=== PATIENT | female | born 1960 | race Caucasian/White ===

== ENCOUNTER → 2017-08-04 | Outpatient (CLI) | payer OTHER ==
[~2017-08-04] MED LIST: ADVIN25/60 INH; ALBU1AER9 INH; ASPEC81 PO; BACL10TA PO; IBUP-1428 PO; TRAM-10 PO
== END ==
LOC: C.PAIN 10:56
PROVIDERS: ATTEND Physician Assistant Medical

== ENCOUNTER 2022-11-07 07:49 | Observation (INO) ==
[2022-11-07] MEDS ORDERED: SODIUM CHLORIDE 0.9% 250 ML IV PRN ×2 (08:04→20:57)
[2022-11-07] MEDS ORDERED: PANTOprazole 80 MG in DEXTROSE 5% 100 ML IV STA (08:04)
--- NOTE | 2022-11-07 08:11 | Emergency Department Note ---
Impression & Plan Acute GI bleeding, Hyponatremia, Hematemesis, Alcohol dependence, Anemia ED Provider Note NAME: URBANO REYES AGE: 61 SEX: F : 1960 ARRIVES VIA: Walk-In INFORMANT: Patient ED PROVIDER(S): Zac Herman DO CHIEF COMPLAINT: GI bleed HPI: Patient is a 61-year-old female who is an alcoholic that presents to the ER for epigastric abdominal pain associate with vomiting of blood last night. Since around 6 PM last night she has had about 20 bowel movements of bright red blood. Denies any headache or change in vision. Denies any blood thinners. Denies any chest pain or shortness of breath. No dysuria, urgency, or frequency. No other exacerbating or remitting factors. She notes that she cannot keep anything down. Anytime she drinks or eats he gets significantly worse. Denies any dark stools but admits to just persistent blood per rectum. She feels very weak and rundown. PAST MEDICAL HISTORY:See Below PAST SURGICAL HISTORY:See Below FAMILY HISTORY:See Below SOCIAL HISTORY:See Below HOME MEDICATIONS:See Below ALLERGIES:See Below VITALS:See Below PHYSICAL EXAMINATION: GENERAL: Sitting up in bed, alert, ill appearing EYE EXAM: normal conjunctiva. OROPHARYNX: mucous membranes are moist NECK: supple, no nuchal rigidity, no adenopathy, non-tender LUNGS: Clear to auscultation. Normal chest wall mechanics HEART: no murmurs, S1 normal and S2 normal ABDOMEN: abdomen soft, non-tender, normo-active bowel sounds, no masses, no rebound or guarding. UPPER EXTREMITIES: upper extremities are grossly normal. LOWER EXTREMITIES: No pitting edema. NEURO EXAM: Normal sensorium, cranial nerves II-XII grossly intact, normal speech, no gross weakness of arms, no gross weakness of legs. MEDICAL DECISION MAKING: Patient is a 61-year-old female who presents the ER for bright red blood per rectum and vomiting blood. IV was established blood was obtained. Labs show mild leukocytosis of 14,000. Anemia at 9.6 down from baseline 13. INR unremarkable. BMP with a mild hyponatremia 132. BUN was elevated consistent with a likely upper GI bleed. LFTs bilirubin was unremarkable. Troponin was negative. Initially upon presentation systolic pressures were in the 50s. When she reached the room repeat blood pressures were in the low 100s. Had initially called for blood but held on uncrossed as i-STAT showed a hemoglobin 10 and vitals improved. With the result of the actual hemoglobin 9.6 with previous being 13 once able to review the chart did consent for blood and will get blood. Patient was ordered 2 units of crossed blood. Did discuss with Dr. Caraballo for further evaluation and management as well as Dr. Corrales. Patient was updated bedside. Placed on Protonix drip and bolus. Was given a gram of Rocephin in case she does have varices which I do favor she likely does with a history of chronic alcohol use. Patient was also given 2 L of IV fluids combination with 2 units PRBCs ordered in the ER Triage Nursing notes reviewed. Limited review of prior medical records performed Vital Signs: reviewed and remarkable for no significant abnormalities Differential diagnosis: Differential diagnosis includes etiologies such as diverticulitis, diverticulosis, AVM, coagulopathy, colitis, inflammatory bowel disease, malignancy, Marilu-Raines tear, esophagitis, peptic ulcer disease, variceal bleed, gastritis, epistaxis, fissure, hemorrhoids, as well as others were entertained. ER treatment provided: See below Diagnostics interpreted by me include EKG and cardiac monitoring as listed below: -Cardiac Monitoring: An order was placed for continuous cardiac monitoring. The monitor shows a rate of 95 with sinus rhythm. -ECG: Sinus rhythm rate of 93 Normal axis No PVCs QTc 469 -Laboratory studies:Interpreted by me as stated above in MDM and shown below. Imaging studies: Xrays: As interpreted by me: Portable AP upright 1 view of the chest shows no pneumonia per my read CTs show: CT abdomen pelvis shows gastritis Consultation(s): As described in MDM Procedures:none Critical Care: I have personally spent 32 minutes of critical care time in the direct management of this patient. This includes bedside care, interpretation of diagnostic studies, and testing, discussion with consultants, patient, and family members, and other required patient management activities. This 32 minutes is in excess of all separately billable procedures. Past Med/Surg History Medical History Encounter for immunization Hyperlipidemia Surgical History H/O neck surgery H/O tubal ligation History of dental surgery Previous back surgery Family History Mother Breast cancer Hypertension Grandmother (Maternal) Breast cancer Denies family history of Ovarian cancer Prostate cancer Diabetes Myocardial infarction Colorectal cancer Social History Smoking Status: Never smoker Second Hand Exposure: No; Hx Alcohol Use: Yes Alcohol type: beer Hx Substance Use: No marital status: Current Living Situation: Spouse current occupational status: retired Feels Safe at Home: Yes caffeine: Yes (diet coke ) Dental Care, Regularly: Yes Physical Activity Frequency: 5-6 Times per Week Seatbelt Use: always Sunscreen Use: Yes Allergies Allergies Allergy/AdvReac Type Severity Reaction Status Date / Time tizanidine Allergy Severe liver Verified 09/24/22 12:37 problems,confusion Sulfa (Sulfonamide Allergy Mild RASH Verified 09/24/22 12:37 Antibiotics) codeine Allergy Unknown Verified 09/24/22 12:37 iodine Allergy Unknown Verified 09/24/22 12:37 Penicillins Allergy Unknown UNKNOWN Verified 09/24/22 12:37 tetracycline Allergy Unknown Verified 09/24/22 12:37 morphine AdvReac Mild PER PT Verified 09/24/22 12:37 CAUSES EXTREME/INSTANT SICKNESS Morphine Derivatives AdvReac Unknown Unknown Uncoded 09/24/22 12:37 Home Meds Home Medications Medication Instructions Recorded Confirmed aspirin 81 mg tablet,delayed 81 mg PO DAILY 02/20/20 11/07/22 release (Adult Aspirin Regimen) loratadine 10 mg tablet (Claritin) 10 mg PO DAILY 02/20/20 11/07/22 [id number] acid 0.4 1 tab PO DAILY 02/20/20 11/07/22 mg-lycopene 300 mcg-lutein 250 mcg tablet (Centrum Silver) magnesium oxide 400 mg PO DAILY 03/07/21 11/07/22 ascorbate calcium (vitamin C) 500 500 mg PO DAILY 12/16/21 11/07/22 mg tablet cholecalciferol (vitamin D3) 25 25 mcg PO DAILY 12/16/21 11/07/22 mcg (1,000 unit) capsule esomeprazole magnesium 20 mg 20 mg PO DAILY 12/16/21 11/07/22 capsule,delayed release (Nexium) garlic See Rx Instructions PO .COMPLEX 12/16/21 11/07/22 Previous Rx's Medication Instructions Recorded fluticasone 250 mcg-salmeterol 50 1 inh inhalation BID #60 ea 05/08/20 mcg/dose blistr powdr for inhalation (Advair Diskus) oxybutynin chloride 5 mg 5 mg PO DAILY #30 tabs 03/07/21 tablet,extended release 24 hr gabapentin 100 mg capsule 100 mg PO TID PRN pain #90 caps 12/16/21 indapamide 1.25 mg tablet 1.25 mg PO QAM #30 tabs 02/10/22 albuterol sulfate 90 mcg/actuation 2 inh inhalation Q4H PRN shortness 09/24/22 aerosol inhaler of breath or wheezing #8.5 grams atorvastatin 10 mg tablet 10 mg PO DAILY #90 tabs 09/25/22 baclofen 10 mg tablet 10 mg PO BID PRN pain #45 tabs 11/04/22 Results & Data (ED) Vital Signs Vital Signs - 24 hr 11/07/22 07:56 11/07/22 08:10 11/07/22 08:10 Temperature 36.6 C Temperature Source Oral Pulse Rate 113 H Pulse Rate [Apical] 95 H Pulse Rate [Left Finger] Pulse Rhythm [Apical] Regular Pulse Rhythm [Left Finger] Pulse Strength [Apical] Pulse Strength [Left Finger] Respiratory Rate 20 16 Respiratory Effort / Characteristics Non-Labored Spontaneous Non-Labored Respiratory Depth Normal Normal Respiratory Pattern Blood Pressure 59/41 L Blood Pressure [Right Arm] 103/74 Blood Pressure Mean 47 Blood Pressure Mean [Right Arm] 83 Blood Pressure Position [Right Arm] Pulse Oximetry 94 99 99 Oxygen Delivery Method Room Air Room Air Room Air Oxygen Flow Rate Sepsis Recent Fever Within 48 Hours No Sepsis New/Unexplained Change in Mental Status N/A Sepsis Action Taken by Nursing No Action Required 11/07/22 08:28 11/07/22 08:42 11/07/22 09:30 Temperature Temperature Source Pulse Rate 95 H Pulse Rate [Apical] 105 H 100 H Pulse Rate [Left Finger] Pulse Rhythm [Apical] Regular Regular Pulse Rhythm [Left Finger] Pulse Strength [Apical] Pulse Strength [Left Finger] Respiratory Rate 16 16 Respiratory Effort / Characteristics Non-Labored Non-Labored Respiratory Depth Normal Normal Respiratory Pattern Blood Pressure Blood Pressure [Right Arm] 123/79 113/82 Blood Pressure Mean Blood Pressure Mean [Right Arm] 93 92 Blood Pressure Position [Right Arm] Pulse Oximetry 98 100 Oxygen Delivery Method Room Air Room Air Oxygen Flow Rate Sepsis Recent Fever Within 48 Hours Sepsis New/Unexplained Change in Mental Status Sepsis Action Taken by Nursing 11/07/22 10:27 11/07/22 10:00 11/07/22 11:46 Temperature 36.9 C 36.4 C L Temperature Source Oral Temporal Artery Scan Pulse Rate Pulse Rate [Apical] 101 H 97 H Pulse Rate [Left Finger] 96 H Pulse Rhythm [Apical] Regular Pulse Rhythm [Left Finger] Regular Pulse Strength [Apical] Normal Pulse Strength [Left Finger] Normal Respiratory Rate 20 16 16 Respiratory Effort / Characteristics Non-Labored Spontaneous Non-Labored Non-Labored Spontaneous Respiratory Depth Normal Normal Normal Respiratory Pattern Regular Blood Pressure Blood Pressure [Right Arm] 132/83 133/87 106/67 Blood Pressure Mean Blood Pressure Mean [Right Arm] 99 102 80 Blood Pressure Position [Right Arm] Lying Semi-fowlers Pulse Oximetry 100 99 100 Oxygen Delivery Method Room Air Room Air Oxymask Oxygen Flow Rate 7 Sepsis Recent Fever Within 48 Hours Sepsis New/Unexplained Change in Mental Status Sepsis Action Taken by Nursing 11/07/22 11:50 11/07/22 12:00 11/07/22 12:10 Temperature Temperature Source Pulse Rate Pulse Rate [Apical] 95 H 93 H 88 Pulse Rate [Left Finger] Pulse Rhythm [Apical] Regular Regular Regular Pulse Rhythm [Left Finger] Pulse Strength [Apical] Normal Normal Normal Pulse Strength [Left Finger] Respiratory Rate 14 14 16 Respiratory Effort / Characteristics Non-Labored Spontaneous Non-Labored Spontaneous Non-Labored Spontaneous Respiratory Depth Normal Normal Normal Respiratory Pattern Regular Regular Regular Blood Pressure Blood Pressure [Right Arm] 102/63 95/61 L 97/61 L Blood Pressure Mean Blood Pressure Mean [Right Arm] 76 72 73 Blood Pressure Position [Right Arm] Semi-fowlers Semi-fowlers Semi-fowlers Pulse Oximetry 94 95 95 Oxygen Delivery Method Room Air Room Air Room Air Oxygen Flow Rate Sepsis Recent Fever Within 48 Hours Sepsis New/Unexplained Change in Mental Status Sepsis Action Taken by Nursing 11/07/22 12:20 11/07/22 12:30 11/07/22 12:40 Temperature 37.5 C Temperature Source Temporal Artery Scan Pulse Rate Pulse Rate [Apical] 90 90 89 Pulse Rate [Left Finger] Pulse Rhythm [Apical] Regular Regular Regular Pulse Rhythm [Left Finger] Pulse Strength [Apical] Normal Normal Normal Pulse Strength [Left Finger] Respiratory Rate 16 18 19 Respiratory Effort / Characteristics Non-Labored Spontaneous Non-Labored Spontaneous Non-Labored Spontaneous Respiratory Depth Normal Normal Normal Respiratory Pattern Regular Regular Regular Blood Pressure Blood Pressure [Right Arm] 99/59 L 96/62 L 99/67 L Blood Pressure Mean Blood Pressure Mean [Right Arm] 72 73 77 Blood Pressure Position [Right Arm] Semi-fowlers Semi-fowlers Semi-fowlers Pulse Oximetry 95 95 94 Oxygen Delivery Method Room Air Room Air Room Air Oxygen Flow Rate Sepsis Recent Fever Within 48 Hours Sepsis New/Unexplained Change in Mental Status Sepsis Action Taken by Nursing Laboratory Data 11/07/22 08:16 11/07/22 08:16 Lab Results 11/07/22 11/07/22 11/07/22 Range/Units 08:16 08:16 08:16 WBC 14.04 H (4.8-10.8) K/ul RBC 2.87 L (4.20-5.40) M/uL Hgb 9.6 L (12.0-16.0) g/dl POC Hgb (12.0-16.0) g/dl Hct 26.9 L (37.0-47.0) % POC Hct (37-47) % MCV 93.7 (80.0-100.0) fL MCH 33.4 (25.0-34.0) pg MCHC 35.7 (32.0-36.0) g/dL RDW Std Deviation 42.8 (36.4-46.3) fL RDW Coeff of Steve 12.4 (11.5-14.5) % Plt Count 240 (130-400) K/uL MPV 11.3 (9.4-12.4) fL Immature Gran % (Auto) 0.9 % Neut % (Auto) 80.7 % Lymph % (Auto) 10.1 % Geary % (Auto) 8.0 % Eos % (Auto) 0.0 % Baso % (Auto) 0.3 % Neut # (Auto) 11.33 H (1.40-6.50) K/uL Lymph # (Auto) 1.42 (1.2-3.4) K/uL Geary # (Auto) 1.12 H (0.11-0.59) K/uL Eos # (Auto) 0.00 (0-0.50) K/uL Baso # (Auto) 0.04 (0-0.2) K/uL Immature Gran # (Auto) 0.13 (0.01-0.20) K/uL PT 10.7 (9.0-12.0) Seconds INR 1.0 (0.9-1.1) APTT 20.7 L (21.0-31.0) Seconds PTT Ratio 0.8 POC Sodium (135-144) mmol/L Sodium 132 L (136-145) mmol/L POC Potassium (3.3-5.0) mmol/L Potassium 3.5 (3.5-5.1) mmol/L POC Chloride (101-112) mmol/L Chloride 93 L (98-107) mmol/L Carbon Dioxide 29 (21-32) mmol/L POC Total CO2 (24-31) mmol/L Anion Gap 10 (3-11) POC Anion Gap (16-25) mmol/L POC BUN (7-18) mg/dl BUN 28 H (6-23) mg/dl Creatinine 0.85 (0.6-1.2) mg/dl POC Creatinine (0.6-1.3) mg/dl Est Cr Clr Drug Dosing 65.9 ml/min Est GFR ( Amer) 84.5 ml/min Est GFR (Non-Af Amer) 72.9 ml/min BUN/Creatinine Ratio 32.9 H (10-20) Glucose 194 H (70-99(Fasting)) mg/dl POC Glucose (other) (70-99) mg/dl Calcium 9.6 (8.5-10.1) mg/dl POC Ioniz Calcium Kaden (1.12-1.32) mmol/l Total Bilirubin 1.0 (0.2-1.0) mg/dl AST 21 (13-39) U/L ALT 21 (7-52) U/L Alkaline Phosphatase 40 (34-104) U/L Troponin I High Sens 2.5 (0-14) pg/ml Total Protein 7.8 (6.0-8.3) gm/dl Albumin 4.4 (3.4-5.0) gm/dl Globulin 3.4 (2.5-4.0) gm/dl Albumin/Globulin Ratio 1.3 (0.9-2) Blood Type Blood Type Recheck Antibody Screen Crossmatch 11/07/22 11/07/22 11/07/22 Range/Units 08:17 08:18 09:45 WBC (4.8-10.8) K/ul RBC (4.20-5.40) M/uL Hgb (12.0-16.0) g/dl POC Hgb 10.2 L (12.0-16.0) g/dl Hct (37.0-47.0) % POC Hct 30 L (37-47) % MCV (80.0-100.0) fL MCH (25.0-34.0) pg MCHC (32.0-36.0) g/dL RDW Std Deviation (36.4-46.3) fL RDW Coeff of Steve (11.5-14.5) % Plt Count (130-400) K/uL MPV (9.4-12.4) fL Immature Gran % (Auto) % Neut % (Auto) % Lymph % (Auto) % Geary % (Auto) % Eos % (Auto) % Baso % (Auto) % Neut # (Auto) (1.40-6.50) K/uL Lymph # (Auto) (1.2-3.4) K/uL Geary # (Auto) (0.11-0.59) K/uL Eos # (Auto) (0-0.50) K/uL Baso # (Auto) (0-0.2) K/uL Immature Gran # (Auto) (0.01-0.20) K/uL PT (9.0-12.0) Seconds INR (0.9-1.1) APTT (21.0-31.0) Seconds PTT Ratio POC Sodium 131 L (135-144) mmol/L Sodium (136-145) mmol/L POC Potassium 3.3 (3.3-5.0) mmol/L Potassium (3.5-5.1) mmol/L POC Chloride 93 L (101-112) mmol/L Chloride (98-107) mmol/L Carbon Dioxide (21-32) mmol/L POC Total CO2 26 (24-31) mmol/L Anion Gap (3-11) POC Anion Gap 16.0 (16-25) mmol/L POC BUN 24 H (7-18) mg/dl BUN (6-23) mg/dl Creatinine (0.6-1.2) mg/dl POC Creatinine 0.7 (0.6-1.3) mg/dl Est Cr Clr Drug Dosing ml/min Est GFR ( Amer) ml/min Est GFR (Non-Af Amer) ml/min BUN/Creatinine Ratio (10-20) Glucose (70-99(Fasting)) mg/dl POC Glucose (other) 180 H (70-99) mg/dl Calcium (8.5-10.1) mg/dl POC Ioniz Calcium Kaden 1.01 L (1.12-1.32) mmol/l Total Bilirubin (0.2-1.0) mg/dl AST (13-39) U/L ALT (7-52) U/L Alkaline Phosphatase (34-104) U/L Troponin I High Sens (0-14) pg/ml Total Protein (6.0-8.3) gm/dl Albumin (3.4-5.0) gm/dl Globulin (2.5-4.0) gm/dl Albumin/Globulin Ratio (0.9-2) Blood Type O Positive Blood Type Recheck O Positive Antibody Screen NEGATIVE Crossmatch See Detail Administered Medications Discontinued Medications Sodium Chloride (Nss 1000ml) 2,000 mls @ 999 mls/hr IV .Q2H1M NIMESH Stop: 11/07/22 10:15 Last Admin: 11/07/22 08:39 Dose: 999 mls/hr Documented By: JOSEPHINE Pantoprazole Sodium 80 mg/ (Dextrose) 100 mls @ 400 mls/hr IV ONE STA Stop: 11/07/22 08:18 Last Infusion: 11/07/22 09:20 Dose: 0 mls/hr Documented By: Admin: 11/07/22 08:40 Dose: 400 mls/hr Documented By: JOSEPHINE Ceftriaxone Sodium (Rocephin) 2,000 mg in 70 mls @ 140 mls/hr IV NOW STA Stop: 11/07/22 09:40 Last Infusion: 11/07/22 10:48 Dose: 0 mls/hr Documented By: Admin: 11/07/22 10:18 Dose: 140 mls/hr Documented By: JOSEPHINE Octreotide Acetate 500 mcg/ (Dextrose) 100.5 mls @ 10.05 mls/hr IV .Q10H [facility] Stop: 12/07/22 09:59 Last Admin: 11/07/22 10:47 Dose: 50 mcg/hr, 10.1 mls/hr Documented By: LINDA Multivitamins 10 ml/ Thiamine HCl 100 mg/ Folic Acid 1 mg/Sodium Chloride 1,011.2 mls @ 1,011.2 mls/hr IV .Q1H [facility] Stop: 11/07/22 10:59 Last Admin: 11/07/22 12:42 Dose: 1,011.2 mls/hr Documented By: FAVIAN Octreotide Acetate (Octreotide Bolus From Bag) 50 mcg IV ONE ONE Stop: 11/07/22 10:31 Last Admin: 11/07/22 10:44 Dose: 50 mcg Documented By: LINDA Imaging Data Radiologist's Impression: Abdomen/Pelvis CT 11/07/22 08:[address] WITHOUT CONTRAST CT DOSE: 466.87 mGy.cm HISTORY: Bloody bowel movements. Generalized illness. Nausea. Vomiting. Diarrhea. TECHNIQUE: Multiaxial CT images of the abdomen and pelvis were performed without contrast. A dose lowering technique was utilized adhering to the principles of ALARA. COMPARISON STUDY: Abdomen and pelvis CT 05/03/2015. FINDINGS: Small irregular density within the medial aspect of the left lower lobe favors scarring. Otherwise, the lung bases are clear. No pneumoperitoneum. No pneumatosis. Bilateral L5 spondylolysis with associated grade 1 anterolisthesis. Stable sclerotic focus within the right posterior iliac bone. There is an old mild superior endplate compression deformity at T12. There is a left gluteal stimulator pack. Mild circumferential thickening of the distal esophagus is noted. Mild hepatic steatosis. The unenhanced gallbladder, adrenal glands, and spleen unremarkable. Calcifications again noted within the uncinate process of the pancreas consistent with chronic pancreatitis. No CT evidence for acute pancreatitis. No renal or ureteral stones. No hydronephrosis. No retroperitoneal lymphadenopathy. Normal caliber abdominal aorta. Tiny fat- containing umbilical hernia. No pelvic lymphadenopathy or pelvic free fluid. The bladder, uterus, bilateral ovaries are within normal limits. Suboptimal evaluation for bowel pathology due to the lack of intravenous and oral contrast. However, there is no definite bowel wall thickening or obstruction. Colonic diverticulosis. No evidence for acute diverticulitis. Fluid-filled nondilated colon. Normal appendix. IMPRESSION: 1. Colonic diverticulosis. No evidence for acute diverticulitis. 2. Normal appendix. 3. Air-filled nondilated colon. This likely represents a diarrheal illness. 4. Mild hepatic steatosis. 5. Mild circumferential thickening of the distal esophagus. This favors an esophagitis. 6. Additional findings as described above. ACT 112: Negative or not required by law. Electronically signed by: Tristian Payton M.D. 11/07/2022 8:46 AM Chest X-Ray 11/07/22 08:04 XR chest 1V portable CLINICAL HISTORY: Atypical chest pain. COMPARISON STUDY: Chest 03/25/2013. FINDINGS: No pneumothorax. No pleural effusions. The lungs are clear. The heart is normal in size. Left-sided stimulator leads are noted. There are old, healed bilateral rib fractures. IMPRESSION: No acute process within the chest. ACT 112: Negative or not required by law. Electronically signed by: Tristian Payton M.D. 11/07/2022 8:34 AM Discharge Plan Visit Data Chief Complaint: Illness Stated Complaint: VOMITING, DIARRHEA, DEHYDRATION ED Provider: Zac Herman Discharge Problem: Acute GI bleeding, Hyponatremia, Hematemesis, Alcohol dependence, Anemia Discharge Instructions Interventions: ED Discharge Assessment Last Done: 11/07/22 10:20
[2022-11-07] MEDS ORDERED: SODIUM CHLORIDE 0.9% 1000ML 2,000 ML IV SCH (08:15)
[2022-11-07 08:29] LABS: iSTAT Creatinine 0.7 mg/dl (0.6-1.3); iSTAT Hemoglobin 10.2 g/dl (12.0-16.0); iSTAT Ionized Calcium 1.01 mmol/l (1.12-1.32); iSTAT Potassium 3.3 mmol/L (3.3-5.0)
--- NOTE | 2022-11-07 08:35 | XRay Report ---
XR chest 1V portable CLINICAL HISTORY: Atypical chest pain. COMPARISON STUDY: Chest 03/25/2013. FINDINGS: No pneumothorax. No pleural effusions. The lungs are clear. The heart is normal in size. Le ft-sided stimulator leads are noted. There are old, healed bilateral rib fractures. IMPRESSION: No acute process within the chest. ACT 112: Negative or not required by law. Electronically signed by: Tristian Payton M.D. 11/07/2022 8:34 AM
[2022-11-07 08:38] LABS: Basophils # (auto) 0.04 K/uL (0-0.2); Basophils % (auto) 0.3 %; Hematocrit (blood only) 26.9 % (37.0-47.0); Hemoglobin 9.6 g/dl (12.0-16.0); Immature Granulocytes # (auto) 0.13 K/uL (0.01-0.20); Immature Granulocytes % (auto) 0.9 %; Lymphocytes # (auto) 1.42 K/uL (1.2-3.4); Lymphocytes % (auto) 10.1 %; Mean Corpuscular Hemoglobin 33.4 pg (25.0-34.0); Mean Corpuscular Hgb Conc 35.7 g/dL (32.0-36.0); Mean Corpuscular Volume 93.7 fL (80.0-100.0); Mean Platelet Volume 11.3 fL (9.4-12.4); Monocytes # (auto) 1.12 K/uL (0.11-0.59); Neutrophils # (auto) 11.33 K/uL (1.40-6.50); Neutrophils % (auto) 80.7 %; Platelet Count 240 K/uL (130-400); RDW Coefficient of Variation 12.4 % (11.5-14.5); RDW Standard Deviation 42.8 fL (36.4-46.3); Red Blood Count 2.87 M/uL (4.20-5.40); White Blood Count 14.04 K/ul (4.8-10.8)
--- NOTE | 2022-11-07 08:47 | CT Scan Report ---
ABDOMEN AND PELVIS CT WITHOUT CONTRAST CT DOSE: 466.87 mGy.cm HISTORY: Bloody bowel movements. Generalized illness. Nausea. Vomiting. Diarrhea. TECHNIQUE: Multiaxial CT images of the abdomen and pelvis were performed without contrast. A dose lo wering technique was utilized adhering to the principles of ALARA. COMPARISON STUDY: Abdomen and pelvis CT 05/03/2015. FINDINGS: Small irregular density within the medial aspect of the left lower lobe favors scarring. Ot herwise, the lung bases are clear. No pneumoperitoneum. No pneumatosis. Bilateral L5 spondylolysis wi th associated grade 1 anterolisthesis. Stable sclerotic focus within the right posterior iliac bone. There is an old mild superior endplate compression deformity at T12. There is a left gluteal stimulat or pack. Mild circumferential thickening of the distal esophagus is noted. Mild hepatic steatosis. Th e unenhanced gallbladder, adrenal glands, and spleen unremarkable. Calcifications again noted within the uncinate process of the pancreas consistent with chronic pancreatitis. No CT evidence for acute p ancreatitis. No renal or ureteral stones. No hydronephrosis. No retroperitoneal lymphadenopathy. Norm al caliber abdominal aorta. Tiny fat-containing umbilical hernia. No pelvic lymphadenopathy or pelvic free fluid. The bladder, uterus, bilateral ovaries are within normal limits. Suboptimal evaluation f or bowel pathology due to the lack of intravenous and oral contrast. However, there is no definite rowdy wel wall thickening or obstruction. Colonic diverticulosis. No evidence for acute diverticulitis. Flu id-filled nondilated colon. Normal appendix. IMPRESSION: 1. Colonic diverticulosis. No evidence for acute diverticulitis. 2. Normal appendix. 3. Air-filled nondilated colon. This likely represents a diarrheal illness. 4. Mild hepatic steatosis. 5. Mild circumferential thickening of the distal esophagus. This favors an esophagitis. 6. Additional findings as described above. ACT 112: Negative or not required by law. Electronically signed by: Tristian Payton M.D. 11/07/2022 8:46 AM
[2022-11-07 08:54] LABS: Albumin Globulin Ratio 1.3 (0.9-2); Albumin Level 4.4 gm/dl (3.4-5.0); BUN Creatinine Ratio 32.9 (10-20); Calcium 9.6 mg/dl (8.5-10.1); Creatinine Clr Calc Pharmacy 65.9 ml/min; Est GFR (African American) 84.5 ml/min; Est GFR (Non-African American) 72.9 ml/min; Globulin 3.4 gm/dl (2.5-4.0); Potassium 3.5 mmol/L (3.5-5.1); Total Protein 7.8 gm/dl (6.0-8.3)
[2022-11-07 09:00] LABS: Troponin I High Sensitivity 2.5 pg/ml (0-14)
[2022-11-07 09:10] LABS: Partial Thromboplastin Ratio 0.8; Partial Thromboplastin Time 20.7 Seconds (21.0-31.0); Prothrombin Time 10.7 Seconds (9.0-12.0)
[2022-11-07] MEDS ORDERED: cefTRIAXone SODIUM 2,000 MG/70 ML BAG IV STA (09:11)
--- NOTE | 2022-11-07 09:35 | History & Physical Report ---
Date of Service November 07, 2022 Assessment & Plan (1) Hematochezia: Plan: Acute uncontrolled serious risk the patient hematochezia and hematemesis in the setting of alcohol abuse. Patient was volume resuscitated. Reportedly ERs ordered a unit of blood. Gastroenterology has seen the patient is considering endoscopy. Patient was bolused with Protonix 80 will be kept on 40 twice daily Patient has some circumferential thickening of the distal esophagus on CT which may can be considered esophagitis. She also has a hepatic steatosis. This time she will be given a banana bag continue on daily thiamine and folic acid hemoglobin recheck later this afternoon N.p.o. until GI decides whether and endoscopy is warranted (2) Alcohol dependence: Plan: Chronic and uncontrolled moderate risk the patient family at the bedside and endorses previous alcohol withdrawal. Patient states she typically does not have shakes in the morning when she does not drink. Patient is typically on as needed gabapentin subsequently we will start the gabapentin protocol with the at risk Ativan as needed as backup. If the patient continues to use Ativan we may institute Librium therapy in addition. Patient was counseled on alcohol cessation emergency department. At this time she does not have any significant LFT abnormalities be considered alcoholic hepatitis we will continue to watch these as her hospital course unfolds (3) S/P cervical spinal fusion: Plan: Patient voices concern that she has previous neck pain after procedures from previous surgical fusion is to be noted for anesthesia Plan and daughter in the emergency room and provided additional history. I also spoke to the GI [facility] Nahun interiano History of Present Illness Primary Care Provider: Nba Gale, 61-year-old female presents with vomiting bright red blood increased bowel movements with diarrhea and then eventually hematochezia. Patient is a daily alcohol user in the past has been admitted with pancreatitis. Patient had 2 days of preceding epigastric discomfort and general ill feeling with weakness. During that time she had very little p.o. intake. Family says that in the past she has been through significant withdrawal in the hospital. Patient patient voices large concerns regarding positioning of her neck as she has previously had cervical spine surgery and with her last colonoscopy which was over 16 years ago post procedure she had significant neck pain due to positioning. Initially in the ER she was hypotensive with concern for hypovolemic shock however she was volume resuscitated with crystalloid now her vital signs are stable with exception of persistent sinus tachycardia. Her hemoglobin is 9 g but this may not be the actual level due to we will equilibration from her resuscitation Allergies Allergy/AdvReac Type Severity Reaction Status Date / Time tizanidine Allergy Severe liver Verified 09/24/22 12:37 problems,confusion Sulfa (Sulfonamide Allergy Mild RASH Verified 09/24/22 12:37 Antibiotics) codeine Allergy Unknown Verified 09/24/22 12:37 iodine Allergy Unknown Verified 09/24/22 12:37 Penicillins Allergy Unknown UNKNOWN Verified 09/24/22 12:37 tetracycline Allergy Unknown Verified 09/24/22 12:37 morphine AdvReac Mild PER PT Verified 09/24/22 12:37 CAUSES EXTREME/INSTANT SICKNESS Morphine Derivatives AdvReac Unknown Unknown Uncoded 09/24/22 12:37 Home Medications Medication Instructions Recorded Confirmed Type aspirin 81 mg tablet,delayed 81 mg PO DAILY 02/20/20 11/07/22 History release (Adult Aspirin Regimen) loratadine 10 mg tablet (Claritin) 10 mg PO DAILY 02/20/20 11/07/22 History hqrgapde-kbz-xgffd acid 0.4 1 tab PO DAILY 02/20/20 11/07/22 History mg-lycopene 300 mcg-lutein 250 mcg tablet (Centrum Silver) fluticasone 250 mcg-salmeterol 50 1 inh inhalation BID #60 ea 05/08/20 11/07/22 Rx mcg/dose blistr powdr for inhalation (Advair Diskus) magnesium oxide 400 mg PO DAILY 03/07/21 11/07/22 History oxybutynin chloride 5 mg 5 mg PO DAILY #30 tabs 03/07/21 11/07/22 Rx tablet,extended release 24 hr ascorbate calcium (vitamin C) 500 500 mg PO DAILY 12/16/21 11/07/22 History mg tablet cholecalciferol (vitamin D3) 25 25 mcg PO DAILY 12/16/21 11/07/22 History mcg (1,000 unit) capsule esomeprazole magnesium 20 mg 20 mg PO DAILY 12/16/21 11/07/22 History capsule,delayed release (Nexium) gabapentin 100 mg capsule 100 mg PO TID PRN pain #90 caps 12/16/21 11/07/22 Rx garlic See Rx Instructions PO .COMPLEX 12/16/21 11/07/22 History indapamide 1.25 mg tablet 1.25 mg PO QAM #30 tabs 02/10/22 11/07/22 Rx albuterol sulfate 90 mcg/actuation 2 inh inhalation Q4H PRN shortness 09/24/22 11/07/22 Rx aerosol inhaler of breath or wheezing #8.5 grams atorvastatin 10 mg tablet 10 mg PO DAILY #90 tabs 09/25/22 11/07/22 Rx baclofen 10 mg tablet 10 mg PO BID PRN pain #45 tabs 11/04/22 11/07/22 Rx Past Med/Surg History Medical History Encounter for immunization Hyperlipidemia Surgical History H/O neck surgery H/O tubal ligation History of dental surgery Previous back surgery Family History Mother Breast cancer Hypertension Grandmother (Maternal) Breast cancer Denies family history of Ovarian cancer Prostate cancer Diabetes Myocardial infarction Colorectal cancer Social History Smoking Status: Never smoker Second Hand Exposure: No; Hx Alcohol Use: Yes Alcohol type: beer Hx Substance Use: No marital status: Current Living Situation: Spouse current occupational status: retired Feels Safe at Home: Yes caffeine: Yes (diet coke ) Dental Care, Regularly: Yes Physical Activity Frequency: 5-6 Times per Week Seatbelt Use: always Sunscreen Use: Yes Physical Exam Physical Exam: This pt is without immediate distress after resusitation car is tachy lungs are clear abdomen is soft and non tender right now without Hepatomegally' skin is pale, palmar creases are red ext are without edema Results & Data Results & Data ([facility]) Vital Signs (Past 12 Hours) Vital Signs Temp Pulse Pulse Resp BP BP Pulse Ox 11/07/22 09:30 100 H 16 113/82 100 11/07/22 08:42 105 H 16 123/79 98 11/07/22 08:28 95 H 11/07/22 08:10 99 11/07/22 08:10 95 H 16 103/74 99 11/07/22 07:56 97.9 F 113 H 20 59/41 L 94 O2 Del Method 11/07/22 09:30 Room Air 11/07/22 08:42 Room Air 11/07/22 08:28 11/07/22 08:10 Room Air 11/07/22 08:10 Room Air 11/07/22 07:56 Room Air Laboratory Results Reviewed CBC Reviewed chemistry Reviewed liver function test Reviewed coagulation studies COVID testing negative ECG Additional Comments: Normal sinus rhythm rate of 90-[address] or T wave changes with exception of flattened T waves in V2 and 3 Code Status & VTE Plan VTE Prophylaxis Plan VTE Prophylaxis will be ordered: Yes PG Care Time/CCT Total # of Minutes Spent Total Time Spent with Patient: Total time spent is greater than 50% in coordination of care (as documented) at patient's floor/unit and/or counseling patient: Coding Level of Care Code 94699 INT INP/OBS CARE 2MIN Diagnoses Hematochezia K92.1 Alcohol dependence F10.20 S/P cervical spinal fusion Z98.1
--- NOTE | 2022-11-07 09:49 | Gastrointestinal Consultation ---
Date of Consultation November 07, 2022 Assessment & Plan (1) Hematemesis: (2) Hematochezia: Plan Discussed case with Dr. Caraballo who helped advise on plan. - set patient up for EGD. patient and family agreeable. - continue protonix drip. - start octreotide drip. - continue to trend Hgb/hct. Supervising Physician Co-Signing Physician Notes Agree with MIKE Beckford as above Abd: Soft, NT, ND, +BS Continue current therapy with Protonix and Octreotide gtt Proceed with emergent EGD now for Hematemesis. History of Present Illness Reason for Consultation: hematemesis Requesting Physician: ER History of Present Illness Patient is a 61 year old female who presented to the ED last evening with complaints of hematemesis and hematochezia which started yesterday. She reports that she has had 3 episodes of hematemesis with the last one being about 6 pm last evening. she has had several blood bowel movements as well and her tells me that he had seen some black stool. she also tells me she has been having reflux and epigastric pain yesterday. tells me she has had symptoms longer than just yesterday and that she has not felt well for a while. she admits to a past history of significant alcohol use for at least 16 years with drinking at least 3 pints of vodka a week. tells me "probably more than that". she also admits to frequent advil use. Upon ED evaluation her hgb 9.6, hct 26.9, BUN 24, Na 132, potassium 3.5, LFTs normal, INR 1.0. she tells me she has felt much better since coming to the hospital. No further reflux or abdominal pain and she tells me she has not had any further bowel movements or vomiting. she tells me she had a colonoscopy done about 16 years ago but she is not sure who had done this. She has never had an EGD. Allergies Allergy/AdvReac Type Severity Reaction Status Date / Time tizanidine Allergy Severe liver Verified 09/24/22 12:37 problems,confusion Sulfa (Sulfonamide Allergy Mild RASH Verified 09/24/22 12:37 Antibiotics) codeine Allergy Unknown Verified 09/24/22 12:37 iodine Allergy Unknown Verified 09/24/22 12:37 Penicillins Allergy Unknown UNKNOWN Verified 09/24/22 12:37 tetracycline Allergy Unknown Verified 09/24/22 12:37 morphine AdvReac Mild PER PT Verified 09/24/22 12:37 CAUSES EXTREME/INSTANT SICKNESS Morphine Derivatives AdvReac Unknown Unknown Uncoded 09/24/22 12:37 Home Medications Medication Instructions Recorded Confirmed Type aspirin 81 mg tablet,delayed 81 mg PO DAILY 02/20/20 11/07/22 History release (Adult Aspirin Regimen) loratadine 10 mg tablet (Claritin) 10 mg PO DAILY 02/20/20 11/07/22 History hyfxqfvw-wgx-ufbhh acid 0.4 1 tab PO DAILY 02/20/20 11/07/22 History mg-lycopene 300 mcg-lutein 250 mcg tablet (Centrum Silver) fluticasone 250 mcg-salmeterol 50 1 inh inhalation BID #60 ea 05/08/20 11/07/22 Rx mcg/dose blistr powdr for inhalation (Advair Diskus) magnesium oxide 400 mg PO DAILY 03/07/21 11/07/22 History oxybutynin chloride 5 mg 5 mg PO DAILY #30 tabs 03/07/21 11/07/22 Rx tablet,extended release 24 hr ascorbate calcium (vitamin C) 500 500 mg PO DAILY 12/16/21 11/07/22 History mg tablet cholecalciferol (vitamin D3) 25 25 mcg PO DAILY 12/16/21 11/07/22 History mcg (1,000 unit) capsule esomeprazole magnesium 20 mg 20 mg PO DAILY 12/16/21 11/07/22 History capsule,delayed release (Nexium) gabapentin 100 mg capsule 100 mg PO TID PRN pain #90 caps 12/16/21 11/07/22 Rx garlic See Rx Instructions PO .COMPLEX 12/16/21 11/07/22 History indapamide 1.25 mg tablet 1.25 mg PO QAM #30 tabs 02/10/22 11/07/22 Rx albuterol sulfate 90 mcg/actuation 2 inh inhalation Q4H PRN shortness 09/24/22 11/07/22 Rx aerosol inhaler of breath or wheezing #8.5 grams atorvastatin 10 mg tablet 10 mg PO DAILY #90 tabs 09/25/22 11/07/22 Rx baclofen 10 mg tablet 10 mg PO BID PRN pain #45 tabs 11/04/22 11/07/22 Rx Patient History Medical History Encounter for immunization Hyperlipidemia Surgical History H/O neck surgery H/O tubal ligation History of dental surgery Previous back surgery Family History Mother Breast cancer Hypertension Grandmother (Maternal) Breast cancer Denies family history of Ovarian cancer Prostate cancer Diabetes Myocardial infarction Colorectal cancer Social History Smoking Status: Never smoker Second Hand Exposure: No; Hx Alcohol Use: Yes Alcohol type: beer Hx Substance Use: No marital status: Current Living Situation: Spouse current occupational status: retired Feels Safe at Home: Yes caffeine: Yes (diet coke ) Dental Care, Regularly: Yes Physical Activity Frequency: 5-6 Times per Week Seatbelt Use: always Sunscreen Use: Yes Review of Systems Review of Systems: All systems reviewed & are unremarkable except as noted in HPI & below Physical Exam Constitutional: WD/WN, vitals as above Respiratory: normal respiratory effort, lungs clear to auscultation Cardiovascular: mild tachycardic Gastrointestinal (Abdomen): normal bowel sounds, soft, nontender, no hepatosplenomegaly Skin: no rashes, warm and dry Psychiatric: Orientation: alert and oriented x 3 Affect: euthymic affect Results & Data ([facility]) Vital Signs (Past 12 Hours) Vital Signs Temp Pulse Pulse Resp BP BP Pulse Ox 11/07/22 09:30 100 H 16 113/82 100 11/07/22 08:42 105 H 16 123/79 98 11/07/22 08:28 95 H 11/07/22 08:10 99 11/07/22 08:10 95 H 16 103/74 99 11/07/22 07:56 36.6 C 113 H 20 59/41 L 94 O2 Del Method 11/07/22 09:30 Room Air 11/07/22 08:42 Room Air 11/07/22 08:28 11/07/22 08:10 Room Air 11/07/22 08:10 Room Air 11/07/22 07:56 Room Air Diagnostic Findings ABDOMEN AND PELVIS CT WITHOUT CONTRAST CT DOSE: 466.87 mGy.cm HISTORY: Bloody bowel movements. Generalized illness. Nausea. Vomiting. Diarrhea. TECHNIQUE: Multiaxial CT images of the abdomen and pelvis were performed without contrast. A dose lowering technique was utilized adhering to the principles of ALARA. COMPARISON STUDY: Abdomen and pelvis CT 05/03/2015. FINDINGS: Small irregular density within the medial aspect of the left lower lobe favors scarring. Otherwise, the lung bases are clear. No pneumoperitoneum. No pneumatosis. Bilateral L5 spondylolysis with associated grade 1 anterolisth esis. Stable sclerotic focus within the right posterior iliac bone. There is an old mild superior endplate compression deformity at T12. There is a left gluteal stimulator pack. Mild circumferential thickening of the distal esophagus is noted. Mild hepatic steatosis. The unenhanced gallbladder, adrenal glands, and spleen unremarkable. Calcifications again noted within the uncinate process of the pancreas consistent with chronic pancreatitis. No CT evidence for acute pancreatitis. No renal or ureteral stones. No hydronephrosis. No retroperitoneal lymphadenopathy. Normal caliber abdominal aorta. Tiny fat-containing umbilical hernia. No pelvic lymphadenopathy or pelvic free fluid. The bladder, uterus, bilateral ovaries are within normal limits. Suboptimal evaluation for bowel pathology due to the lack of intravenous and oral contrast. However, there is no definite bowel wall thickening or obstruction. Colonic diverticulosis. No evidence for acute diverticulitis. Fluid-filled nondilated colon. Normal appendix. IMPRESSION: 1. Colonic diverticulosis. No evidence for acute diverticulitis. 2. Normal appendix. 3. Air-filled nondilated colon. This likely represents a diarrheal illness. 4. Mild hepatic steatosis. 5. Mild circumferential thickening of the distal esophagus. This favors an esophagitis. 6. Additional findings as described above. ACT 112: Negative or not required by law. Electronically signed by: Tristian Payton M.D. 11/07/2022 8:46 AM PG Care Time/CCT Total # of Minutes Spent Total Time Spent with Patient: Total time spent is greater than 50% in coordination of care (as documented) at patient's floor/unit and/or counseling patient: Coding Level of Care Code 34875 OFFICE CONSULT LVL 40M Diagnoses Hematemesis K92.0 Hematochezia K92.1 Time Spent (min) 42
[2022-11-07] MEDS ORDERED: STAT IV STA (09:50)
[2022-11-07] MEDS ORDERED: OCTREOTIDE ACETATE 100 MCG/ML VIAL SQ STA (09:54)
[2022-11-07] MEDS ORDERED: MULTI-VITAMIN INFUSION 10 ML, THIAMINE HCL 100 MG, FOLIC ACID 1 MG in SODIUM CHLORIDE 0... IV SCH (10:00)
[2022-11-07] MEDS ORDERED: OCTREOTIDE ACETATE 500 MCG in DEXTROSE 5% 100 ML IV SCH (10:00)
--- NOTE | 2022-11-07 10:08 | Anesthesiology Consultation ---
Date of Service November 07, 2022 Assessment & Plan Chart Review Chart Review: entry level recruiter initiated History Surgery Operation Date: 11/07/22 11:20 Proposed Procedures p Esophagogastroduodenoscopy - Tesfaye G. Case, DO Height/Weight Height: 5 ft 7 in Weight: 72 kg Allergies Allergy/AdvReac Type Severity Reaction Status Date / Time tizanidine Allergy Severe liver Verified 09/24/22 12:37 problems,confusion Sulfa (Sulfonamide Allergy Mild RASH Verified 09/24/22 12:37 Antibiotics) codeine Allergy Unknown Verified 09/24/22 12:37 iodine Allergy Unknown Verified 09/24/22 12:37 Penicillins Allergy Unknown UNKNOWN Verified 09/24/22 12:37 tetracycline Allergy Unknown Verified 09/24/22 12:37 morphine AdvReac Mild PER PT Verified 09/24/22 12:37 CAUSES EXTREME/INSTANT SICKNESS Morphine Derivatives AdvReac Unknown Unknown Uncoded 09/24/22 12:37 Medications Home Medications Medication Instructions Recorded Confirmed Last Taken aspirin 81 mg tablet,delayed 81 mg PO DAILY 02/20/20 11/07/22 06/20/20 release (Adult Aspirin Regimen) loratadine 10 mg tablet (Claritin) 10 mg PO DAILY 02/20/20 11/07/22 Unknown uphhxfnm-jhu-xdbni acid 0.4 1 tab PO DAILY 02/20/20 11/07/22 Unknown mg-lycopene 300 mcg-lutein 250 mcg tablet (Centrum Silver) fluticasone 250 mcg-salmeterol 50 1 inh inhalation BID #60 ea 05/08/20 11/07/22 Unknown mcg/dose blistr powdr for inhalation (Advair Diskus) magnesium oxide 400 mg PO DAILY 03/07/21 11/07/22 Unknown oxybutynin chloride 5 mg 5 mg PO DAILY #30 tabs 03/07/21 11/07/22 Unknown tablet,extended release 24 hr ascorbate calcium (vitamin C) 500 500 mg PO DAILY 12/16/21 11/07/22 Unknown mg tablet cholecalciferol (vitamin D3) 25 25 mcg PO DAILY 12/16/21 11/07/22 Unknown mcg (1,000 unit) capsule esomeprazole magnesium 20 mg 20 mg PO DAILY 12/16/21 11/07/22 Unknown capsule,delayed release (Nexium) gabapentin 100 mg capsule 100 mg PO TID PRN pain #90 caps 12/16/21 11/07/22 Unknown garlic See Rx Instructions PO .COMPLEX 12/16/21 11/07/22 Unknown indapamide 1.25 mg tablet 1.25 mg PO QAM #30 tabs 02/10/22 11/07/22 Unknown albuterol sulfate 90 mcg/actuation 2 inh inhalation Q4H PRN shortness 09/24/22 11/07/22 Unknown aerosol inhaler of breath or wheezing #8.5 grams atorvastatin 10 mg tablet 10 mg PO DAILY #90 tabs 09/25/22 11/07/22 Unknown baclofen 10 mg tablet 10 mg PO BID PRN pain #45 tabs 11/04/22 11/07/22 Unknown Active Medications Generic Name Dose Route Start Last Admin Trade Name Freq PRN Reason Stop Dose Admin Sodium Chloride 2,000 mls @ 999 mls/hr 11/07/22 08:15 11/07/22 08:39 Nss 1000ml IV 11/07/22 10:15 999 mls/hr .Q2H1M NIMESH Administration Past Medical History Medical History Encounter for immunization Hyperlipidemia Past Family History Family History Mother Breast cancer Hypertension Grandmother (Maternal) Breast cancer Denies family history of Ovarian cancer Prostate cancer Diabetes Myocardial infarction Colorectal cancer Past Surgical History Surgical History H/O neck surgery H/O tubal ligation History of dental surgery Previous back surgery Social History Smoking Status: Never smoker Hx Alcohol Use: Yes Alcohol type: beer Hx Substance Use: No Physical Exam Vital Signs Last Vital Signs Temp 97.9 F 11/07/22 07:56 Pulse 100 H 11/07/22 09:30 Resp 16 11/07/22 09:30 BP 113/82 11/07/22 09:30 Pulse Ox 100 11/07/22 09:30 O2 Del Method Room Air 11/07/22 09:30 Testing Laboratory Results 11/07/22 08:16 11/07/22 08:16 PT 10.7 Seconds (9.0-12.0) 11/07/22 08:16 INR 1.0 (0.9-1.1) 11/07/22 08:16 APTT 20.7 Seconds (21.0-31.0) L 11/07/22 08:16 Blood Type O Positive 11/07/22 08:18 Antibody Screen NEGATIVE 11/07/22 08:18 11/07/22 08:17 POC Glucose (other) 180 H Electrocardiogram Date: 11/07/22 Normal sinus rhythm, rate 93 bpm Normal ECG When compared with ECG of 14-DEC-2020 05:31, Nonspecific T wave abnormality now evident in Anterior leads QT has shortened Chest X-Ray Date: 11/07/22 Findings: + NAD
[2022-11-07] MEDS ORDERED: ATROPINE SULFATE 0.1 MG/ML 10ML SYR IV PRN (10:09)
[2022-11-07] MEDS ORDERED: ONDANSETRON INJ 2 MG/ML 2 ML VIAL IV PRN ×2 (10:09→12:56)
[2022-11-07] MEDS ORDERED: ePHEDrine sulfate 50 MG/ML AMP IV PRN (10:09)
[2022-11-07] MEDS ORDERED: fentaNYL citrate PF 100 MCG/2 ML VIAL IV PRN (10:09)
[2022-11-07] MEDS ORDERED: fentaNYL citrate PF 100 MCG/2 ML VIAL ONE (10:30)
[2022-11-07] MEDS ORDERED: OCTREOTIDE BOLUS FROM BAG IV ONE (10:30)
[2022-11-07] MEDS ORDERED: PROPOFOL IV EMULSION 10 MG/ML 20 ML VIAL IV ONE (10:30)
--- NOTE | 2022-11-07 11:49 | Electrocardiogram Report ---
Test Reason : Blood Pressure : / mmHG Vent. Rate : 093 BPM Atrial Rate : 093 BPM P-R Int : 152 ms QRS Dur : 074 ms QT Int : 378 ms P-R-T Axes : 066 048 054 degrees QTc Int : 469 ms Normal sinus rhythm Normal ECG When compared with ECG of 14-DEC-2020 05:31, Nonspecific T wave abnormality now evident in Anterior leads QT has shortened Confirmed by Medardo Moya ([id number]) on 11/07/2022 11:49:11 AM Referred By: Confirmed By:Medardo Moya
--- NOTE | 2022-11-07 11:57 | GI REPORT ---
Patient Name: Lorie Jimenez Procedure Date: 11/07/2022 10:57 AM Date of : 1960 Admit Type: Outpatient Age: 61 Gender: Female Attending MD: Tesfaye Caraballo DO, Procedure: Upper GI endoscopy Providers: Tesfaye Caraballo DO Referring MD: Nahun Perera Indications: Hematemesis Medicines: Monitored Anesthesia Care Complications: No immediate complications. Estimated Blood Loss: Estimated blood loss: none. Procedure: Pre-Anesthesia Assessment: - Prior to the procedure, a History and Physical was performed, and patient medications and allergies were reviewed. The patient's tolerance of previous anesthesia was also reviewed. The risks and benefits of the procedure and the sedation options and risks were discussed with the patient. All questions were answered, and informed consent was obtained. Prior Anticoagulants: The patient has taken no anticoagulant or antiplatelet agents except for aspirin. ASA Grade Assessment: III - A patient with severe systemic disease. After reviewing the risks and benefits, the patient was deemed in satisfactory condition to undergo the procedure. After obtaining informed consent, the endoscope was passed under direct vision. Throughout the procedure, the patient's blood pressure, pulse, and oxygen saturations were monitored continuously. The Endoscope was introduced through the mouth, and advanced to the second part of duodenum. The upper GI endoscopy was accomplished without difficulty. The patient tolerated the procedure well. Findings: A non-bleeding mucosal tear that was pre-existing (pre-procedure) was found in the upper third of the esophagus in the middle third of the esophagus. This measured 8 mm in length. One benign-appearing, intrinsic moderate stenosis was found 38 cm from the incisors. This stenosis measured 1.3 cm (inner diameter) x less than one cm (in length). The stenosis was traversed. A TTS dilator was passed through the scope. Dilation with a 15-16.5-18 mm balloon dilator was performed to 16.5 mm. The dilation site was examined and showed moderate improvement in luminal narrowing. The entire examined stomach was normal. The examined duodenum was normal. Impression: - Mucosal tear in the upper third of the esophagus in the middle third of the esophagus. - Benign-appearing esophageal stenosis. Dilated. - Normal stomach. - Normal examined duodenum. - No specimens collected. Recommendation: - Return patient to hospital friend for ongoing care. - Advance diet as tolerated. - Use Protonix (pantoprazole) 40 mg PO BID. - Abstain from all alcohol as it is a known liver toxin. - Schedule outpatient colonoscopy for screening purposes. Tesfaye Caraballo, DO 11/07/2022 11:56:34 AM This report has been signed electronically. Note Initiated On: 11/07/2022 10:57 AM Number of Addenda: 0 I attest to the content of the Intraoperative Record and orders documented therein, exceptions below {[id number]}
[2022-11-07] MEDS ORDERED: ROCURONIUM BROMIDE 10 MG/ML 5 ML VIAL IV ONE (12:00)
[2022-11-07] MEDS ORDERED: PANTOprazole 40 MG TAB PO SCH (12:00)
[2022-11-07] MEDS ORDERED: ONDANSETRON INJ 2 MG/ML 2 ML VIAL ONE (12:01)
[2022-11-07] MEDS ORDERED: LIDOCAINE 2% MPF LOCAL 5 ML VIAL INFIL ONE (12:01)
--- NOTE | 2022-11-07 12:40 | Anesthesiology Progress Note ---
Date of Service November 07, 2022 Anesthesia Post Procedure Vital Signs Vital Signs: Temp Pulse Pulse Pulse Resp BP BP 11/07/22 12:30 90 18 96/62 L 11/07/22 12:20 90 16 99/59 L 11/07/22 12:10 88 16 97/61 L 11/07/22 12:00 93 H 14 95/61 L 11/07/22 11:50 95 H 14 102/63 11/07/22 11:46 97.5 F L 97 H 16 106/67 11/07/22 10:00 101 H 16 133/87 11/07/22 10:27 98.4 F 96 H 20 132/83 11/07/22 09:30 100 H 16 113/82 11/07/22 08:42 105 H 16 123/79 11/07/22 08:28 95 H 11/07/22 08:10 11/07/22 08:10 95 H 16 103/74 11/07/22 07:56 97.9 F 113 H 20 59/41 L Pulse Ox O2 Del Method O2 Flow Rate 11/07/22 12:30 95 Room Air 11/07/22 12:20 95 Room Air 11/07/22 12:10 95 Room Air 11/07/22 12:00 95 Room Air 11/07/22 11:50 94 Room Air 11/07/22 11:46 100 Oxymask 7 11/07/22 10:00 99 Room Air 11/07/22 10:27 100 Room Air 11/07/22 09:30 100 Room Air 11/07/22 08:42 98 Room Air 11/07/22 08:28 11/07/22 08:10 99 Room Air 11/07/22 08:10 99 Room Air 11/07/22 07:56 94 Room Air Transfer of Care Handoff Completed per policy Notes Mental Status: alert / awake / arousable and participated in evaluation Patient Amnestic to Procedure: Yes Nausea / Vomiting: adequately controlled Pain: adequately controlled Airway Patency, RR, SpO2: stable & adequate BP & HR: stable & adequate Hydration State: stable & adequate Anesthetic Complications: no major complications apparent and Pt Satisfied with anesthetic care
[2022-11-07] MEDS ORDERED: MULTI-VITAMIN INFUSION 10 ML, THIAMINE HCL 100 MG, FOLIC ACID 1 MG in SODIUM CHLORIDE 0... IV ONE (12:56)
[2022-11-07] MEDS ORDERED: GABAPENTIN 800MG ALCOHOL WITHDRAWAL LOAD PO STA (12:56)
[2022-11-07] MEDS ORDERED: BACLOFEN 10 MG TAB PO PRN (12:56)
[2022-11-07] MEDS ORDERED: GABAPENTIN 100 MG CAP PO PRN (12:56)
[2022-11-07] MEDS ORDERED: LORazepam 2 MG/1 ML VIAL IV PRN (12:56)
[2022-11-07] MEDS: LACTATED RINGER'S 1,000 ML IV SCH (13:02)
[2022-11-07] MEDS ORDERED: GABAPENTIN 400 MG CAP PO ONE (13:15)
[2022-11-07] MEDS: ALBUTEROL HFA 8 GM INHALER INH PRN (19:12)
[2022-11-07 20:43] LABS: Hematocrit (blood only) 18.7 % (37.0-47.0); Hemoglobin 6.4 g/dl (12.0-16.0)
[2022-11-07] MEDS ORDERED: PANTOprazole 40 MG in SYRINGE 0 ML IV SCH (21:00)
[2022-11-07] MEDS: GABAPENTIN 400 MG CAP PO SCH (21:27)
[2022-11-07] MEDS: PANTOprazole 40 MG TAB PO SCH (21:28)
[2022-11-08] MEDS: LACTATED RINGER'S 1,000 ML IV SCH (00:21)
[2022-11-08] MEDS: GABAPENTIN 400 MG CAP PO SCH ×3 (05:29→21:41)
[2022-11-08] MEDS: ALBUTEROL HFA 8 GM INHALER INH PRN (05:40)
[2022-11-08 06:13] LABS: Hematocrit (blood only) 24.7 % (37.0-47.0); Hemoglobin 8.5 g/dl (12.0-16.0); Mean Corpuscular Hemoglobin 31.4 pg (25.0-34.0); Mean Corpuscular Hgb Conc 34.4 g/dL (32.0-36.0); Mean Corpuscular Volume 91.1 fL (80.0-100.0); Mean Platelet Volume 11.1 fL (9.4-12.4); Platelet Count 135 K/uL (130-400); RDW Coefficient of Variation 15.6 % (11.5-14.5); RDW Standard Deviation 52.5 fL (36.4-46.3); Red Blood Count 2.71 M/uL (4.20-5.40); White Blood Count 6.57 K/ul (4.8-10.8)
[2022-11-08 07:08] LABS: Prothrombin Time 10.4 Seconds (9.0-12.0)
[2022-11-08] MEDS: ATORVASTATIN 10 MG TAB PO SCH (08:00)
[2022-11-08] MEDS: INDAPAMIDE 1.25 MG TAB PO SCH (08:00)
[2022-11-08] MEDS: MAGNESIUM OXIDE 400 MG TAB PO SCH (08:00)
[2022-11-08] MEDS: LORATADINE 10 MG TAB PO SCH (08:00)
[2022-11-08] MEDS: OXYBUTYNIN CHLORIDE XL 5 MG TABCR PO SCH (08:00)
[2022-11-08] MEDS: ASPIRIN 81 MG ECTAB PO SCH (08:00)
[2022-11-08] MEDS: FLUTICASONE/VILANTEROL 200/25MCG 14 PUFFS/INHALER INH SCH (08:01)
[2022-11-08] MEDS: ASCORBIC ACID 500 MG TAB PO SCH (08:01)
[2022-11-08] MEDS: THIAMINE HCL 100 MG in SYRINGE 9 ML IV SCH (08:01)
[2022-11-08] MEDS: CHOLECALCIFEROL 1,000 UNITS 25 MCG TAB PO SCH (08:01)
[2022-11-08] MEDS: CEROVITE ADV FORMULA TAB PO SCH (08:01)
[2022-11-08] MEDS: FOLIC ACID 1 MG in SYRINGE 9.8 ML IV SCH (08:01)
[2022-11-08] MEDS: PANTOprazole 40 MG TAB PO SCH ×2 (08:01→21:41)
[2022-11-08 08:55] LABS: Albumin Level 3.5 gm/dl (3.4-5.0); Bilirubin,Total 0.8 mg/dl (0.2-1.0); Calcium 8.3 mg/dl (8.5-10.1); Magnesium 1.5 mg/dl (1.7-2.4); Potassium 3.4 mmol/L (3.5-5.1)
[2022-11-08 09:06] LABS: Albumin Globulin Ratio 1.3 (0.9-2); Creatinine Clr Calc Pharmacy 95.5 ml/min; Est GFR (African American) 109.5 ml/min; Est GFR (Non-African American) 94.5 ml/min; Globulin 2.7 gm/dl (2.5-4.0); Total Protein 6.2 gm/dl (6.0-8.3)
--- NOTE | 2022-11-08 12:49 | Hospitalist Progress Note ---
Date of Service November 08, 2022 Assessment & Plan (1) Hematochezia: Plan: Acute not controlled risk is medicated esophageal tear is noted on EGD Protonix 40 twice daily advancing diet on 11/08/2022 An EGD the patient had a mucosal tear in the upper third of the esophagus and also the middle third of the esophagus. Esophageal stenosis which was benign- appearing was dilated. No evidence or stigmata of bleeding was noted. Recommendation outpatient colonoscopy was rendered (2) Alcohol dependence: Plan: Chronic and uncontrolled moderate risk the patient no current signs of alcohol withdrawal at this time Patient continues on the gabapentin protocol with the at risk Ativan as needed as backup. If the patient continues to use Ativan we may institute Librium therapy in addition. Patient was counseled on alcohol cessation on my visit 11/08/2022. Hypokalemia noted and repleted (3) S/P cervical spinal fusion: Plan: Patient voices concern that she has previous neck pain after procedures from previous surgical fusion is to be noted for anesthesia no neck pain has been noted after this procedure Admission and Anticipated Discharge Date Admission Date: November 07, 2022 Subjective Patient is awake and alert is has had no more bright red blood per rectum has had no vomiting she does have some discomfort when swallowing she is tolerating liquids we will be advancing her diet. Her hemoglobin has been stable as well as her vital signs she does not exhibit any signs or symptoms of withdrawal Physical Exam Physical Exam: This pt is without immediate distress she is tolerating oral intake car is regular lungs are clear abdomen is soft and non tender without Hepatomegally' ext are without edema Results & Data Results & Data ([facility]) Vital Signs (Past 12 Hours) Vital Signs Temp Pulse Pulse Pulse Resp BP BP 11/08/22 11:36 98.2 F 88 18 149/84 H 11/08/22 07:54 98.8 F 79 20 122/79 11/08/22 05:40 83 16 11/08/22 01:34 98.4 F 81 16 114/78 11/08/22 01:04 98.4 F 80 16 93/60 L 11/08/22 01:05 98.4 F 80 16 93/60 L 11/08/22 00:49 81 11/08/22 00:49 97.7 F 80 18 90/59 L Pulse Ox O2 Del Method FiO2 11/08/22 11:36 98 Room Air 11/08/22 07:54 96 Room Air 11/08/22 05:40 97 Room Air 21 11/08/22 01:34 97 11/08/22 01:04 91 11/08/22 01:05 91 11/08/22 00:49 11/08/22 00:49 93 Laboratory Results Reviewed CBC Reviewed PRP PG Care Time/CCT Total # of Minutes Spent Total Time Spent with Patient: Total time spent is greater than 50% in coordination of care (as documented) at patient's floor/unit and/or counseling patient: Coding Level of Care Code 77493 SUB INP/OBS CARE 2/35MIN Diagnoses Hematochezia K92.1 Alcohol dependence F10.20 S/P cervical spinal fusion Z98.1
[2022-11-08] MEDS ORDERED: POTASSIUM CHLORIDE PWD 20 MEQ PACK PO ONE (12:59)
[2022-11-09] MEDS: GABAPENTIN 400 MG CAP PO SCH (05:59)
[2022-11-09 06:10] LABS: Hematocrit (blood only) 24.1 % (37.0-47.0); Hemoglobin 8.3 g/dl (12.0-16.0); Mean Corpuscular Hemoglobin 31.4 pg (25.0-34.0); Mean Corpuscular Hgb Conc 34.4 g/dL (32.0-36.0); Mean Corpuscular Volume 91.3 fL (80.0-100.0); Mean Platelet Volume 10.8 fL (9.4-12.4); Platelet Count 163 K/uL (130-400); RDW Coefficient of Variation 15.4 % (11.5-14.5); RDW Standard Deviation 51.5 fL (36.4-46.3); Red Blood Count 2.64 M/uL (4.20-5.40); White Blood Count 5.98 K/ul (4.8-10.8)
[2022-11-09 06:31] LABS: Albumin Globulin Ratio 1.3 (0.9-2); Albumin Level 3.7 gm/dl (3.4-5.0); BUN Creatinine Ratio 9.4 (10-20); Bilirubin,Total 0.4 mg/dl (0.2-1.0); Calcium 8.8 mg/dl (8.5-10.1); Est GFR (African American) 110.1 ml/min; Globulin 2.9 gm/dl (2.5-4.0); Magnesium 1.6 mg/dl (1.7-2.4); Potassium 3.2 mmol/L (3.5-5.1); Total Protein 6.6 gm/dl (6.0-8.3)
[2022-11-09 06:35] LABS: Prothrombin Time 10.2 Seconds (9.0-12.0)
[2022-11-09] MEDS ORDERED: MAGNESIUM SULFATE / D5W 1 GM/100 ML BAG IV ONE (07:30)
[2022-11-09] MEDS ORDERED: POTASSIUM CHLORIDE PWD 20 MEQ PACK PO ONE (07:30)
[2022-11-09] MEDS: FOLIC ACID 1 MG in SYRINGE 9.8 ML IV SCH (07:39)
[2022-11-09] MEDS: OXYBUTYNIN CHLORIDE XL 5 MG TABCR PO SCH (07:40)
[2022-11-09] MEDS: THIAMINE HCL 100 MG in SYRINGE 9 ML IV SCH (07:40)
[2022-11-09] MEDS: FLUTICASONE/VILANTEROL 200/25MCG 14 PUFFS/INHALER INH SCH (07:40)
[2022-11-09] MEDS: LORATADINE 10 MG TAB PO SCH (07:41)
[2022-11-09] MEDS: ASPIRIN 81 MG ECTAB PO SCH (07:41)
[2022-11-09] MEDS: ATORVASTATIN 10 MG TAB PO SCH (07:41)
[2022-11-09] MEDS: CEROVITE ADV FORMULA TAB PO SCH (07:41)
[2022-11-09] MEDS: MAGNESIUM OXIDE 400 MG TAB PO SCH (07:41)
[2022-11-09] MEDS: CHOLECALCIFEROL 1,000 UNITS 25 MCG TAB PO SCH (07:41)
[2022-11-09] MEDS: INDAPAMIDE 1.25 MG TAB PO SCH (07:41)
[2022-11-09] MEDS: ASCORBIC ACID 500 MG TAB PO SCH (07:41)
[2022-11-09] MEDS: PANTOprazole 40 MG TAB PO SCH (07:41)
[2022-11-09] MEDS ORDERED: NALTREXONE HCL 50 MG TAB PO ONE (10:45)
--- NOTE | 2022-11-09 13:42 | Discharge Summary ---
Date of Service November 09, 2022 Admission HPI Per Admitting Provider 61-year-old female presents with vomiting bright red blood increased bowel movements with diarrhea and then eventually hematochezia. Patient is a daily alcohol user in the past has been admitted with pancreatitis. Patient had 2 days of preceding epigastric discomfort and general ill feeling with weakness. During that time she had very little p.o. intake. Family says that in the past she has been through significant withdrawal in the hospital. Patient patient voices large concerns regarding positioning of her neck as she has previously had cervical spine surgery and with her last colonoscopy which was over 16 years ago post procedure she had significant neck pain due to positioning. Initially in the ER she was hypotensive with concern for hypovolemic shock however she was volume resuscitated with crystalloid now her vital signs are stable with exception of persistent sinus tachycardia. Her hemoglobin is 9 g but this may not be the actual level due to we will equilibration from her resuscitation Principal Diagnosis Hematemesis Esophageal tear Esophageal stricture status post dilation Anemia requiring transfusion Hypokalemia requiring repletion Discharge Exam Awake alert appropriate No respiratory distress Discharge Data Allergies Allergy/AdvReac Type Severity Reaction Status Date / Time tizanidine Allergy Severe liver Verified 09/24/22 12:37 problems,confusion Sulfa (Sulfonamide Allergy Mild RASH Verified 09/24/22 12:37 Antibiotics) codeine Allergy Unknown Verified 09/24/22 12:37 iodine Allergy Unknown Verified 09/24/22 12:37 Penicillins Allergy Unknown UNKNOWN Verified 09/24/22 12:37 tetracycline Allergy Unknown Verified 09/24/22 12:37 morphine AdvReac Mild PER PT Verified 09/24/22 12:37 CAUSES EXTREME/INSTANT SICKNESS Morphine Derivatives AdvReac Unknown Unknown Uncoded 09/24/22 12:37 Consultations 11/07/22 09:11 ED Decision to Admit Stat 11/07/22 12:56 Consult Gastroenterology Routine Procedures Performed Operation Date: 11/07/22 11:20 Actual Procedures p Esophagogastroduodenoscopy with dilitation - Tesfaye Pierson Case, DO Ordered Studies 11/07/22 08:04 CT abd pelvis wo con Stat Hospital Course (1) Hematochezia: Acute not controlled risk is medicated esophageal tear is noted on EGD Tolerate advancing diet return outpatient PPI An EGD the patient had a mucosal tear in the upper third of the esophagus and also the middle third of the esophagus. Esophageal stenosis which was benign- appearing was dilated. No evidence or stigmata of bleeding was noted. Recommendation outpatient colonoscopy was rendered patient to follow-up with gastroenterology (2) Alcohol dependence: Chronic and uncontrolled moderate risk the patient no current signs of alcohol withdrawal at this time Patient was counseled on alcohol cessation on my visit 11/08/2022. On 11 09 patient requested naltrexone 1 dose of 50 mg was given with prescription for 30 days with recommending counseling with her outpatient provider regarding ongoing treatment and outpatient alcohol reduction counseling Hypokalemia noted and repleted (3) S/P cervical spinal fusion: Patient voices concern that she has previous neck pain after procedures from previous surgical fusion is to be noted for anesthesia no neck pain has been noted after this procedure Total Time Total Time Spent Total Time Spent (In Minutes): It required greater than 30 minutes to prepare this patient for discharge Discharge Plan Discharge Items Patient Disposition: Home - Self-Care Reason For Visit: HEMATEMESIS, HEMATOCHEZIA Discharge Diagnosis: gi bleed esophageal tear esophageal stricture that was dialated alcohol abuse Activity: Per Instructions section Non-emergency contact: Primary Care Provider and Intensive Care Anaesthetist Call non-emergency contact if: your symptoms worsen Follow-up/Referrals: Tesfaye Caraballo DO [Physician] - Nba Gale DO [Primary Care Provider] - 11/13/22 12:00 pm Diet: Regular Addtl Attending Provider Instructions: you had come in with throwing up blood and it was found that you had a narrowed part of your swallowing tube(esophagus) which was stretched and a tear in your esophagus also, you needed to have a transfusion but have been stable since. you will be placed on some medication aimed at healing your swallowing tube but should consider follow up with Dr Caraballo for possible colonoscopy. I strongly recommend stopping alcohol use of any kind and considering discussiong Naloxone treatment with your primary care. Alcohol cessation programs also are successful in helping people stop using alcohol Pending Studies at Discharge: No Stand-Alone Forms: [facility], Smoking Cessation Medications and DC Order Prescriptions: New naltrexone 50 mg tablet 50 mg PO DAILY Qty: 30 0RF Continued fluticasone propion-salmeterol [Advair Diskus] 250-50 mcg/dose blister with device 1 inh inhalation BID Qty: 60 2RF indapamide 1.25 mg tablet 1.25 mg PO QAM Qty: 30 11RF atorvastatin 10 mg tablet 10 mg PO DAILY Qty: 90 3RF baclofen 10 mg tablet 10 mg PO BID PRN (Reason: pain) Qty: 45 5RF aspirin [Adult Aspirin Regimen] 81 mg tablet,delayed release (DR/EC) 81 mg PO DAILY Centrum Silver 0.4-300-250 mg-mcg-mcg tablet 1 tab PO DAILY loratadine [Claritin] 10 mg tablet 10 mg PO DAILY albuterol sulfate 90 mcg/actuation HFA aerosol inhaler 2 inh inhalation Q4H PRN (Reason: shortness of breath or wheezing) Qty: 8.5 5RF magnesium oxide 400 mg magnesium capsule 400 mg PO DAILY oxybutynin chloride 5 mg tablet extended release 24hr 5 mg PO DAILY Qty: 30 2RF cholecalciferol (vitamin D3) 25 mcg (1,000 unit) capsule 25 mcg PO DAILY ascorbate calcium (vitamin C) 500 mg tablet 500 mg PO DAILY esomeprazole magnesium [Nexium] 20 mg capsule,delayed release(DR/EC) 20 mg PO DAILY garlic See Rx Instructions PO .COMPLEX Rx Instructions: PO 4800MG. DAILY gabapentin 100 mg capsule 100 mg PO TID PRN (Reason: pain) Qty: 90 5RF Discharge Orders: Discharge Order (Routine); Ordered 11/09/22 Ordered By: Christiano Corrales Admission Data Admit Date/Time: 11/07/22 12:49 Attending Provider: Christiano Corrales Admit Provider: Christiano Corrales Primary Care Provider: Nba Gale Other Providers: Christiano Corrales ; Tesfaye Caraballo Other Interventions: Discharge Summary Assessment (RN) Last Done: 11/09/22 08:33 Coding Level of Care Code 22968 INP/OBS DISCH >30 MIN Diagnoses Hematochezia K92.1 Alcohol dependence F10.20 S/P cervical spinal fusion Z98.1
[2022-11-09] MEDS ORDERED: GABAPENTIN 400 MG CAP PO SCH (18:00)
[2022-11-11] MEDS ORDERED: GABAPENTIN 400 MG CAP PO SCH (06:00)
== END 2022-11-09 12:07 | disposition home or self-care (01) | DRG 378 ==
LOC: ED 07:49 → OR 10:15 → PACUINP 12:49 → INTOOBSV 12:49 → 4W 18:02
DX: K92.0 Hematemesis; Z88.5 Allergy status to narcotic agent; F10.20 Alcohol dependence, uncomplicated; K22.2 Esophageal obstruction; Z91.041 Radiographic dye allergy status; E87.1 Hypo-osmolality and hyponatremia; K22.89 Other specified disease of esophagus; Z88.2 Allergy status to sulfonamides; E87.6 Hypokalemia; Z88.0 Allergy status to penicillin; D64.9 Anemia, unspecified; Z79.82 Long term (current) use of aspirin; Z88.1 Allergy status to other antibiotic agents; E86.0 Dehydration; K92.1 Melena; Z98.1 Arthrodesis status